=== PATIENT | female | born 1985 | race Caucasian/White ===

== ENCOUNTER 2016-08-08 18:38 | Emergency (ER) | payer SELFPAY ==
[~2016-08-08] VITALS: Ht 152.4 cm; Wt 57.5 kg
[2016-08-08 18:47] VITALS: Ht 152.4 cm; Wt 57.5 kg
[2016-08-08 20:13] LABS: URINE BLOOD (Dip) POC 2+ (NEGATIVE)
[2016-08-08] MEDS ORDERED: NITR-58 PO (20:20)
[2016-08-08] MEDS ORDERED: PHEN-538 PO (20:20)
[2016-08-08] MEDS ORDERED: NITROFURANTOIN (SR) 100 MG CAP PO ONE (20:30)
[2016-08-08] MEDS ORDERED: PHENAZOPYRIDINE 100 MG TAB PO ONE (20:30)
[2016-08-08 20:31] VITALS: BP 113/55; PULSE 80; RESP 20; TEMP 97.7
--- NOTE | 2016-08-08 20:44 | ERD ---
ER Documentation Chief Complaint Date/Time DATE: 08/08/16 TIME: 20:42 Chief Complaint painful/burning urination x 4 days. also c/o blood in urine HPI Patient is a 31-year-old female with no medical problems with no medical problems who presents with burning with urination. She also noticed blood in her urine. This is been there for the past 5 days. She has not had a UTI in the past. She denies fevers. She had mild headache. She tried Advil for pain. ROS All systems reviewed and are negative except as per history of present illness. Medications Home Meds Active Scripts Phenazopyridine Hcl* (Pyridium*) 200 Mg Tab, 200 MG PO TID Y for URINARY PAIN, # 6 TAB Prov:CHELSI HALLMAN MD 08/08/16 Nitrofurantoin Monohyd Macrocr* (Macrobid*) 100 Mg Capsr, 100 MG PO BID for 7 Days, CAP Prov:CHELSI HALLMAN MD 08/08/16 Allergies Allergies: Coded Allergies: No Known Drug Allergy (Verified Allergy, Unknown, 08/08/16) PMhx/Soc Medical and Surgical Hx: pt denies Medical Hx, pt denies Surgical Hx Hx Alcohol Use: No Hx Substance Use: No Hx Tobacco Use: No Smoking Status: Never smoker FmHx Family History: No diabetes Physical Exam Vitals Vital Signs Date Time Temp Pulse Resp B/P Pulse Ox O2 Delivery O2 Flow Rate FiO2 08/08/16 20:31 97.7 80 20 113/55 100 Room Air 08/08/16 18:47 97.6 92 20 114/59 100 Physical Exam Const: No acute distress Head: Atraumatic Eyes: Normal Conjunctiva ENT: Normal External Ears, Nose and Mouth. Neck: Full range of motion..~ No meningismus. Resp: Clear to auscultation bilaterally Cardio: Regular rate and rhythm, no murmurs Abd: Soft, non tender, non distended. Normal bowel sounds Skin: No petechiae or rashes Back: No midline or flank tenderness Ext: No cyanosis, or edema Neur: Awake and alert Psych: Normal Mood and Affect Results 24 hrs Laboratory Tests Test 08/08/16 20:15 Bedside Urine Blood 2+ Bedside Urine Glucose (UA) Negative Bedside Urine Ketones (LAB) Negative Bedside Urine Leukocyte Esterase (L 3+ Bedside Urine Nitrite (LAB) Positive Bedside Urine Protein (LAB) 3+ Bedside Urine pH (LAB) 7.0 Current Medications Medications (Trade) Dose Ordered Sig/Suzan Route PRN Reason Start Time Stop Time Status Last Admin Dose Admin Nitrofurantoin Macrocrystals (Macrobid) 100 mg ONCE ONCE PO 08/08/16 20:30 2 20:31 DC 08/08/16 20:25 Phenazopyridine HCl (Pyridium) 200 mg ONCE ONCE PO 08/08/16 20:30 08/08/16 20:31 DC 08/08/16 20:25 Procedures/MDM Urine test is negative. Urine dip is positive for infection. Patient is a 31-year-old female with no medical problems who presents with dysuria. The patient has burning with urination. She has hematuria as well. Urine test is negative I doubt or ectopic . Urine dip is positive for infection I do believe she has acute cystitis. She is otherwise well-appearing and well-hydrated I believe outpatient management is appropriate. She will be given a prescription for Macrobid and Pyridium and the first doses were given in the emergency department. She can return for any worsening symptoms. I doubt appendicitis, cholecystitis, or bowel obstruction. Departure Diagnosis: Primary Impression: Cystitis Condition: Fair Patient Instructions: Cystitis [facility] Usted se dobbins hecho un examen mdico de control que le indica que no est en sandie condicin que requiera tratamiento urgente en el Departamento de Emergencia. Un estudio ms profundo y el tratamiento de redman condicin pueden esperar sin ningn riesgo hasta que usted sea atendida/o en el consultorio de redman mdico o sandie cl shy. Es responsabilidad suya arreglar sandie alhaji para el seguimiento del jennifer. MANEJO DE CONDICIONES NO URGENTES EN EL FUTURO 1) Si usted tiene un mdico de atencin primaria: Usted debera llamar a redman mdico de atencin primaria antes de venir al departamento de emergencia. Despus de las horas de consultorio, redman doctor o redman asociado/a est disponible por telfono. El mdico o enfermero de elida en el servicio telefnico puede asesorarle por mariposa medio para atender el problema, o jnenifer contrario se puede programar sandie alhaji. 2) Si usted no tiene un mdico de atencin primaria: Llame al mdico o clnica de referencia que aparece abajo stevie las horas de consultorio para hacer sandie alhaji para que le vean. CLINICAS: [facility] [place] [phone] [facility] [phone] [facility] [phone] [place] [phone] [place] [id number] [phone] [facility]. [phone] [address] Additional Instructions: Llame al doctor MAANA y serafin sandie ALHAJI PARA DENTRO DE 2-3 HAWK.Dgale a la secretaria que nosotros le instruimos hacer esta alhaji.Avise o llame si redman condicin se empeora antes de la alhaji. Regresa aqui si peor o no mejor. CHELSI HALLMAN MD Aug 08, 2016 20:44
== END 2016-08-08 20:32 | disposition home or self-care (01) ==
LOC: FTE 18:38
DX: N30.01 Acute cystitis with hematuria (principal)
CPT/HCPCS: 81003; 99283